=== PATIENT | female | born 1965 | race Caucasian/White ===

== ENCOUNTER → 2019-12-19 10:41 | Outpatient (CLI) | payer BC, SELFPAY ==
--- NOTE | ~2019-12-19 | MM_ITS ---
EXAMINATION: MM screening ivana RT w connie HISTORY: Screening right mammogram, history of left breast cancer TECHNIQUE: Craniocaudal and mediolateral oblique 3-D tomosynthesis images were obtained and synthetic 2-D images were generated. CAD analysis was submitted and interpreted. COMPARISON: 12/27/2018, 12/12/2018, 05/02/2017, 04/30/2016 BREAST PARENCHYMAL COMPOSITION: The breasts are heterogeneously dense, which may obscure small masses . FINDINGS: There is no evidence of suspicious mass, calcification, or architectural distortion to sugg est malignancy. There has been no suspicious interval change. IMPRESSION: 1. No mammographic evidence of malignancy. 2. Recommend routine screening mammography in one year. BI-RADS Category 1: Negative Reviewed, dictated and finalized at location A. US MANAGER
== END ==
PROVIDERS: Visit Provider Internal Medicine Hematology & Oncology
DX: Z12.31 Encounter for screening mammogram for malignant neoplasm of breast (principal); Z85.3 Personal history of malignant neoplasm of breast
CPT/HCPCS: 77063; 77067

== ENCOUNTER 2020-01-16 10:28 | Outpatient (CLI) | payer BC, SELFPAY ==
[2020-01-16 10:42] LABS: Basophils Percent Auto 0.3 % (0.2-1.2); Eosinophils Absolute Auto 0.1 K/mm3 (0-0.3); Eosinophils Percent Auto 0.8 % (0-4.4); Hematocrit 39.6 % (37.0-47.0); Hemoglobin 12.8 g/dL (12.0-15.0); Immature Granulocyte Absolute 0.02 K/mm3 (0.00-0.031); Immature Granulocyte Percent A 0.3 % (0-0.5); Lymphocytes Absolute Auto 1.42 K/mm3 (0.9-3.2); Lymphocytes Percent Auto 21.5 % (18.3-44.2); Mean Corpuscular HGB Conc 32.3 g/dl (32-36); Mean Corpuscular Hemoglobin 30.8 pg (26-34); Mean Corpuscular Volume 95.4 fl (80-100); Mean Platelet Volume 9.7 fl (7.4-10.4); Monocytes Absolute Auto 0.5 K/mm3 (0.1-0.6); Neutrophils Absolute Auto 4.6 K/mm3 (1.3-6.7); Neutrophils Percent Auto 69.1 % (45.5-73.1); Platelet Count Result 285 k/mm3 (150-375); Red Blood Count 4.15 M/mm3 (4.2-5.4); Red Cell Distribution Width 12.6 % (11.5-14.5); White Blood Count 6.6 K/mm3 (4.5-10.0)
[2020-01-16 10:46] LABS: Blood Urea Nitrogen 13 mg/dL (8-26); Carbon Dioxide 28 mmol/L (22-30); Chloride 103 mmol/L (98-109); Estimated Glomerular Filt Rate 58; Glucose 100 mg/dL (70-105); Sodium 140 mmol/L (138-146)
[2020-01-16 12:20] LABS: Alanine Aminotransferase 22 U/L (4-35); Albumin Level 3.9 g/dL (3.5-5.1); Alkaline Phosphatase 47 U/L (38-126); Aspartate Amino Transferase 25 U/L (14-36); Bilirubin,Total 0.3 mg/dL (0.2-1.3); Blood Urea Nitrogen 13 mg/dL (7-17); Calcium 9.1 mg/dL (8.4-10.2); Carbon Dioxide 28 mmol/L (22-30); Chloride 103 mmol/L (98-107); Estimated Glomerular Filt Rate > 60; Glucose 95 mg/dL (65-105); Potassium 4.2 mmol/L (3.4-5.0); Sodium 138 mmol/L (137-145)
== END 2020-01-16 10:29 | disposition home or self-care (01) ==
PROVIDERS: Visit Provider Internal Medicine Hematology & Oncology
DX: C50.212 Malignant neoplasm of upper-inner quadrant of left female breast (principal); Z17.0 Estrogen receptor positive status [ER+]; C50.312 Malignant neoplasm of lower-inner quadrant of left female breast
CPT/HCPCS: 36415; 80048; 80053; 85025

== ENCOUNTER → 2020-05-05 07:40 | Outpatient (CLI) | payer BC, SELFPAY ==
--- NOTE | ~2020-05-05 | MM_ITS ---
EXAMINATION: MM diagnostic ivana LT w connie HISTORY: History of left breast cancer TECHNIQUE: Craniocaudal, mediolateral, and mediolateral oblique 3-D tomosynthesis images of the left breast were performed and synthetic 2-D images were generated. CAD analysis was submitted and interpr eted. COMPARISON: 10/04/2019, 12/27/2018, 12/12/2018, 05/23/2017, 05/02/2017 FINDINGS: There are stable lumpectomy changes in the lower inner breast. No suspicious mass, calcific ation, or architectural distortion are identified. There has been no suspicious interval change. IMPRESSION: 1. Stable lumpectomy changes in the left breast without mammographic evidence of malignancy. 2. Recommend routine screening mammography. BI-RADS Category 2: Benign finding(s). Reviewed, dictated and finalized at location A. IMPRESSION: 1. Stable lumpectomy changes in the left breast without mammographic evidence o f malignancy. 2. Recommend routine screening mammography. BI-RADS Category 2: Benign finding(s).
== END ==
PROVIDERS: Visit Provider Internal Medicine Hematology & Oncology
DX: C50.212 Malignant neoplasm of upper-inner quadrant of left female breast (principal); Z17.0 Estrogen receptor positive status [ER+]
CPT/HCPCS: 77061; 77065; G0279

== ENCOUNTER 2020-05-05 08:35 | Outpatient (CLI) | payer BC, SELFPAY ==
[2020-05-05 09:10] LABS: Basophils Percent Auto 0.3 % (0.2-1.2); Eosinophils Absolute Auto 0.1 K/mm3 (0-0.3); Eosinophils Percent Auto 1.9 % (0-4.4); Hematocrit 40.7 % (37.0-47.0); Hemoglobin 13.3 g/dL (12.0-15.0); Immature Granulocyte Absolute 0.01 K/mm3 (0.00-0.031); Immature Granulocyte Percent A 0.2 % (0-0.5); Lymphocytes Absolute Auto 1.63 K/mm3 (0.9-3.2); Lymphocytes Percent Auto 28.1 % (18.3-44.2); Mean Corpuscular HGB Conc 32.7 g/dl (32-36); Mean Corpuscular Hemoglobin 30.7 pg (26-34); Mean Platelet Volume 9.9 fl (7.4-10.4); Monocytes Absolute Auto 0.5 K/mm3 (0.1-0.6); Monocytes Percent Auto 8.6 % (2.6-8.5); Neutrophils Absolute Auto 3.5 K/mm3 (1.3-6.7); Neutrophils Percent Auto 60.9 % (45.5-73.1); Platelet Count Result 270 k/mm3 (150-375); Red Blood Count 4.33 M/mm3 (4.2-5.4); Red Cell Distribution Width 12.4 % (11.5-14.5); White Blood Count 5.8 K/mm3 (4.5-10.0)
[2020-05-05 09:51] LABS: Alanine Aminotransferase 31 U/L (4-35); Alkaline Phosphatase 46 U/L (38-126); Aspartate Amino Transferase 27 U/L (14-36); Bilirubin,Total 0.4 mg/dL (0.2-1.3); Blood Urea Nitrogen 14 mg/dL (7-17); Calcium 9.3 mg/dL (8.4-10.2); Carbon Dioxide 30 mmol/L (22-30); Chloride 101 mmol/L (98-107); Estimated Glomerular Filt Rate > 60; Glucose 100 mg/dL (65-105); Potassium 4.5 mmol/L (3.4-5.0); Sodium 136 mmol/L (137-145)
[2020-05-07 21:19] LABS: CA 27.29 19 U/mL (<38)
== END 2020-05-05 08:36 | disposition home or self-care (01) ==
PROVIDERS: Visit Provider Internal Medicine Hematology & Oncology
DX: C50.212 Malignant neoplasm of upper-inner quadrant of left female breast (principal); Z17.0 Estrogen receptor positive status [ER+]
CPT/HCPCS: 36415; 80053; 85025; 86300

== ENCOUNTER 2020-08-05 10:45 | Outpatient (CLI) | payer BC, SELFPAY ==
[2020-08-05 11:20] LABS: Basophils Percent Auto 0.3 % (0.2-1.2); Eosinophils Absolute Auto 0.1 K/mm3 (0-0.3); Eosinophils Percent Auto 0.9 % (0-4.4); Hematocrit 43.2 % (37.0-47.0); Hemoglobin 13.6 g/dL (12.0-15.0); Immature Granulocyte Absolute 0.01 K/mm3 (0.00-0.031); Immature Granulocyte Percent A 0.1 % (0-0.5); Lymphocytes Absolute Auto 1.88 K/mm3 (0.9-3.2); Lymphocytes Percent Auto 25.4 % (18.3-44.2); Mean Corpuscular HGB Conc 31.5 g/dl (32-36); Mean Corpuscular Hemoglobin 30.2 pg (26-34); Mean Corpuscular Volume 95.8 fl (80-100); Mean Platelet Volume 9.8 fl (7.4-10.4); Monocytes Absolute Auto 0.8 K/mm3 (0.1-0.6); Monocytes Percent Auto 10.7 % (2.6-8.5); Neutrophils Absolute Auto 4.6 K/mm3 (1.3-6.7); Neutrophils Percent Auto 62.6 % (45.5-73.1); Platelet Count Result 313 k/mm3 (150-375); Red Blood Count 4.51 M/mm3 (4.2-5.4); Red Cell Distribution Width 12.4 % (11.5-14.5); White Blood Count 7.4 K/mm3 (4.5-10.0)
[2020-08-05 11:23] LABS: Blood Urea Nitrogen 18 mg/dL (8-26); Carbon Dioxide 29 mmol/L (22-30); Chloride 105 mmol/L (98-109); Estimated Glomerular Filt Rate > 60; Glucose 97 mg/dL (70-105); Sodium 142 mmol/L (138-146)
[2020-08-05 12:12] LABS: Alanine Aminotransferase 30 U/L (4-35); Albumin Level 4.3 g/dL (3.5-5.1); Alkaline Phosphatase 48 U/L (38-126); Anion Gap 9 mmol/L (8-16); Aspartate Amino Transferase 28 U/L (14-36); Bilirubin,Total 0.2 mg/dL (0.2-1.3); Blood Urea Nitrogen 19 mg/dL (7-17); Calcium 9.7 mg/dL (8.4-10.2); Carbon Dioxide 32 mmol/L (22-30); Chloride 103 mmol/L (98-107); Estimated Glomerular Filt Rate > 60; Glucose 96 mg/dL (65-105); Potassium 4.4 mmol/L (3.4-5.0); Sodium 144 mmol/L (137-145)
== END 2020-08-05 10:46 | disposition home or self-care (01) ==
PROVIDERS: Visit Provider Internal Medicine Hematology & Oncology
DX: C50.212 Malignant neoplasm of upper-inner quadrant of left female breast (principal); Z17.0 Estrogen receptor positive status [ER+]
CPT/HCPCS: 36415; 80048; 80053; 83001; 85025

== ENCOUNTER 2020-10-27 10:51 | Outpatient (CLI) | payer BC, SELFPAY ==
[2020-10-27 11:24] LABS: Basophils Percent Auto 0.3 % (0.2-1.2); Eosinophils Absolute Auto 0.1 K/mm3 (0-0.3); Eosinophils Percent Auto 0.9 % (0-4.4); Hematocrit 39.4 % (37.0-47.0); Hemoglobin 12.9 g/dL (12.0-15.0); Immature Granulocyte Absolute 0.01 K/mm3 (0.00-0.031); Immature Granulocyte Percent A 0.1 % (0-0.5); Lymphocytes Absolute Auto 1.79 K/mm3 (0.9-3.2); Lymphocytes Percent Auto 24.1 % (18.3-44.2); Mean Corpuscular HGB Conc 32.7 g/dl (32-36); Mean Corpuscular Hemoglobin 30.5 pg (26-34); Mean Corpuscular Volume 93.1 fl (80-100); Mean Platelet Volume 9.5 fl (7.4-10.4); Monocytes Absolute Auto 0.6 K/mm3 (0.1-0.6); Monocytes Percent Auto 8.5 % (2.6-8.5); Neutrophils Absolute Auto 4.9 K/mm3 (1.3-6.7); Neutrophils Percent Auto 66.1 % (45.5-73.1); Platelet Count Result 289 k/mm3 (150-375); Red Blood Count 4.23 M/mm3 (4.2-5.4); Red Cell Distribution Width 12.7 % (11.5-14.5); White Blood Count 7.4 K/mm3 (4.5-10.0)
[2020-10-27 12:57] LABS: Alanine Aminotransferase 27 U/L (4-35); Albumin Level 3.8 g/dL (3.5-5.1); Alkaline Phosphatase 48 U/L (38-126); Anion Gap 5 mmol/L (8-16); Aspartate Amino Transferase 29 U/L (14-36); Bilirubin,Total 0.3 mg/dL (0.2-1.3); Blood Urea Nitrogen 17 mg/dL (7-17); Calcium 9.2 mg/dL (8.4-10.2); Carbon Dioxide 31 mmol/L (22-30); Chloride 103 mmol/L (98-107); Estimated Glomerular Filt Rate > 60; Glucose 96 mg/dL (65-105); Potassium 4.2 mmol/L (3.4-5.0); Sodium 139 mmol/L (137-145)
[2020-11-01 06:02] LABS: CA 15-3 10 U/mL (<32); FSH 19.3 mIU/mL (***)
[2020-11-02 19:11] LABS: Estradiol, Ultrasensitive 648 pg/mL
== END 2020-10-27 10:52 | disposition home or self-care (01) ==
PROVIDERS: Visit Provider Internal Medicine Hematology & Oncology
DX: C50.212 Malignant neoplasm of upper-inner quadrant of left female breast (principal); Z17.0 Estrogen receptor positive status [ER+]
CPT/HCPCS: 36415; 80053; 82670; 83001; 85025; 86300

== ENCOUNTER 2021-02-13 12:48 | Outpatient (CLI) | payer BC, SELFPAY ==
[2021-02-13 13:06] LABS: Basophils Percent Auto 0.4 % (0.2-1.2); Eosinophils Absolute Auto 0.1 K/mm3 (0-0.3); Eosinophils Percent Auto 1.6 % (0-4.4); Hematocrit 40.4 % (37.0-47.0); Hemoglobin 13.1 g/dL (12.0-15.0); Immature Granulocyte Absolute 0.03 K/mm3 (0.00-0.031); Immature Granulocyte Percent A 0.4 % (0-0.5); Lymphocytes Absolute Auto 2.13 K/mm3 (0.9-3.2); Lymphocytes Percent Auto 28.8 % (18.3-44.2); Mean Corpuscular HGB Conc 32.4 g/dl (32-36); Mean Corpuscular Hemoglobin 30.5 pg (26-34); Mean Platelet Volume 9.8 fl (7.4-10.4); Monocytes Absolute Auto 0.7 K/mm3 (0.1-0.6); Monocytes Percent Auto 9.6 % (2.6-8.5); Neutrophils Absolute Auto 4.4 K/mm3 (1.3-6.7); Neutrophils Percent Auto 59.2 % (45.5-73.1); Platelet Count Result 276 k/mm3 (150-375); Red Cell Distribution Width 12.5 % (11.5-14.5); White Blood Count 7.4 K/mm3 (4.5-10.0)
[2021-02-13 13:42] LABS: Alanine Aminotransferase 24 U/L (4-35); Alkaline Phosphatase 45 U/L (38-126); Anion Gap 5 mmol/L (8-16); Aspartate Amino Transferase 26 U/L (14-36); Bilirubin,Total 0.1 mg/dL (0.2-1.3); Blood Urea Nitrogen 17 mg/dL (7-17); Calcium 9.3 mg/dL (8.4-10.2); Carbon Dioxide 29 mmol/L (22-30); Chloride 105 mmol/L (98-107); Estimated Glomerular Filt Rate > 60; Glucose 110 mg/dL (65-105); Potassium 4.3 mmol/L (3.4-5.0); Sodium 139 mmol/L (137-145)
[2021-02-18 05:58] LABS: CA 27.29 19 U/mL (<38)
== END 2021-02-13 12:49 | disposition home or self-care (01) ==
LOC: ANHLAB 12:49
PROVIDERS: Visit Provider Internal Medicine Hematology & Oncology
DX: C50.212 Malignant neoplasm of upper-inner quadrant of left female breast (principal); Z17.0 Estrogen receptor positive status [ER+]
CPT/HCPCS: 36415; 80053; 85025; 86300

== ENCOUNTER → 2021-02-13 13:11 | Outpatient (CLI) | payer BC, SELFPAY ==
--- NOTE | ~2021-02-13 | MM_ITS ---
EXAMINATION: MM screening ivana BI w connie HISTORY: Screening TECHNIQUE: Craniocaudal and mediolateral oblique 3-D tomosynthesis images were obtained and synthetic 2-D images were generated. CAD analysis was submitted and interpreted. COMPARISON: Comparison to multiple prior studies sequentially, with oldest reviewed study dated 12/12. BREAST PARENCHYMAL COMPOSITION: The breasts are heterogenously dense, which may obscure small masses. FINDINGS: There is no evidence of suspicious mass, calcification, or architectural distortion to sugg est malignancy in either breast. There has been no suspicious interval change. IMPRESSION: 1. No mammographic evidence of malignancy. 2. Recommend routine screening mammography in one year. BI-RADS Category 1: Negative Reviewed, dictated and finalized at location A.
== END ==
PROVIDERS: Visit Provider Internal Medicine Hematology & Oncology
DX: Z12.31 Encounter for screening mammogram for malignant neoplasm of breast (principal)
CPT/HCPCS: 77063; 77067

== ENCOUNTER 2022-03-16 12:40 | Outpatient (CLI) | payer OTHER, SELFPAY ==
--- NOTE | 2022-03-16 12:52 | ECG_ITS ---
Measurements Intervals [place] Rate: 70 P: 55 WI: 165 QRS: 49 QRSD: 74 T: 27 QT: 359 QTc: 389 Interpretive Statements SINUS RHYTHM WITH SINUS ARRHYTHMIA BORDERLINE ST-T WAVE ABNORMALITY- INFERIOR LEADS BASELINE ARTIFACT- I, II, AVR, AVL, AVF, V1 BORDERLINE ECG Electronically Signed On 03-16-2022 13:14:17 CDT by Pastor Denny D.O.
[2022-03-16 13:11] LABS: Hematocrit 42.2 % (37.0-47.0); Hemoglobin 13.4 g/dL (12.0-15.0)
== END 2022-03-16 12:41 | disposition home or self-care (01) ==
PROVIDERS: Anesthesiology; PCP Family Medicine; Visit Provider Surgery Plastic and Reconstructive Surgery
DX: I10 Essential (primary) hypertension (principal); Z01.818 Encounter for other preprocedural examination; R94.31 Abnormal electrocardiogram [ECG] [EKG]
CPT/HCPCS: 36415; 85014; 85018; 93005

== ENCOUNTER 2022-03-19 15:26 | Observation (INO) | payer OTHER, SELFPAY ==
[2022-03-15 15:18] VITALS: BMI 24.0
--- NOTE | 2022-03-15 15:25 | PC.NURSE ---
Report to the Outpatient Waiting Room, entrance under the green pavilion located off [facility], at time _0600_ on date _[id number]_. OR Time: _0730_. - You and your visitor will be asked a series of questions to screen for COVID 19 for your protection. - Only one visitor is allowed at this time. - The patient visitor is requested to leave or wait in car when not with patient. - A mask is required within the hospital. Patients may have clear liquids (water, carbonated beverages, clear teas, apple juice) until 3 hours prior to surgery with a maximum of 20 ounces. - No food from midnight until time of surgery - Infants may have breast milk until 4 hours before surgery, infant formula 6 hours prior to surgery. - Children will be allowed to drink immediately following surgery. If applicable, please bring a bottle or sippy cup to assist with drinking. Juice, water, soda, and popsicles are readily available. For infants on formula, please bring formula the day of surgery. Pacifiers are allowed. Take the following medications with a SIP of water the morning of surgery: ___No medications day of surgery. Medications to discontinue per physician __Stop all supplements tuesday. Date to take last [id number] Please no make-up, nail lithuanian, hairspray, perfume, deodorant, or body powder the day of surgery. No jewelry (including any body piercings) or valuables the day of surgery, leave them at home. Please take a shower or bath the night before, or the morning of, surgery with an antibacterial soap. Wear comfortable, loose fitting clothing. Children are encouraged to wear pajamas. - Jewelry must be removed prior to entering the operating room. Rings and piercings that are not removed may be cut off. - The hospital will not accept responsibility for valuables. - Please leave all valuables, including medications, at home the day of surgery. If you are going home after surgery, a licensed driver material handler must drive you home. - NO public transportation without another adult. - We recommend that an adult stay with you for 24 hours following discharge. - We also recommend that you do not drive, make important decision, drink alcoholic beverages, or take any drugs that were not prescribed by your health care provider for at least 24 hours after your discharge time. For Pediatric surgeries, we recommend two adults accompany the child home (only one inside the building at this time). Follow any additional instructions given to you from your surgeon. If you or anyone in your household have experienced Covid symptoms in the past week, please notify your surgeon or the nurse liaison at the phone number below for possible testing. Telephone instructions given to __Patient and asked if any additional questions and then verbalized understanding. Patient advised to call surgeon office or pre surgery nurse liaison [phone] if any additional questions.
--- NOTE | 2022-03-17 12:56 | P.PNAN_ITS ---
Anes - Initial Pre Proc Eval Procedure: Operation Date: 03/18/22 07:30 Proposed Procedures p Face and Neck Lift, Temporal Brow Lift - Ashu Cohen MD s Upper Eyelid Blepharoplasty - Ashu Cohen MD s Bilateral Otoplasty - Ashu Cohen MD Date/Time: 03/17/22 12:56 Surgeon: Ashu Cohen MD Pre Op Diagnosis: Skin Laxity Patient Data Age: 56 Gender: F Height: 1.63 m Weight: 63.6 kg Allergies Allergy/AdvReac Type Severity Reaction Status Date / Time No Known Drug Allergies Allergy Unknown Unknown Verified 03/15/22 15:14 Home Medications Medication Instructions Recorded Confirmed Type tamoxifen 20 mg tablet 20 mg PO DAILY 07/31/20 03/15/22 History lisinopril 10 mg tablet 10 mg PO DAILY #90 tablet 10/14/21 03/15/22 Rx pravastatin 40 mg tablet 40 mg PO QHS #90 tablet 10/14/21 03/15/22 Rx docusate sodium 100 mg capsule 100 mg PO DAILY #14 cap 03/01/22 Rx ondansetron 4 mg disintegrating 4 mg PO Q8H #28 tablet 03/01/22 Rx tablet tramadol 50 mg tablet 50 mg PO Q6H PRN #30 tablet 03/03/22 Rx coenzyme Q10 [CoQ-10] 30 mg PO DAILY 03/15/22 03/15/22 History magnesium 250 mg PO DAILY 03/15/22 03/15/22 History febeppj-nkky-hgmta-oreg-capryl 2 cap PO DAILY 03/15/22 03/15/22 History Patient hx anesthesia problems: none Family hx anesthesia problems: none Results Review: All pre-operative results and documents have been reviewed as p art of the pre-operative evaluation. [facility] Past Medical History Medical History Anxiety Breast cancer left Dyslipidemia Essential (primary) hypertension History of cervical cancer Prediabetes Surgical History Surgical History History of hysterectomy 2009 History of lumpectomy of left breast 2019 History of strabismus surgery 2009 - b/l Family History Family History Other Family history of chronic obstructive pulmonary disease Family history of coronary artery disease Social History Social History Smoking status: Never smoker Alcohol intake: current Substance use: never Substance use type: does not use Living arrangements: with family Gender identity (if verbalized by the patient): Female Spiritual care concerns: No Anes - Eval Final PreProcedure Day of Procedure 03/17/22 12:56 Patient weight: normal Heart: regular rate and rhythm Lungs: clear to auscultation Airway: Mallampati scale class II Neurological: alert and oriented Last oral intake: >/= 8 hours ASA classification: III Emergent: no Anesthetic plan: proceed Anesthesia type and monitoring: general ETT and standard monitoring Results Review: All pre-operative results and documents have been reviewed as part of the pre-operative evaluation. Informed Consent: The patient's anesthetic plan and its attendant risks and benefits were discussed with the patient/family/POA. Questions were solicited and answers provided to the satisfaction of the patient/family/POA.
[2022-03-18] VITALS (12 sets, daily range): BP systolic 84–146; BP diastolic 50–69; PULSE 63–98; RESP 14–20; TEMP 35.9–37.4; O2SAT 95–100; BMI 23.9
--- NOTE | 2022-03-18 07:00 | WPDHPUPDATE1 ---
History and Physical Update Update Date/Time: 03/18/22 07:00 History and Physical has been reviewed, including an updated exam of the patient. There are NO changes in the patient's condition. Risks, benefits, and alternatives have been discussed and questions answered. Patient agrees to proceed with procedure.
[2022-03-18] MEDS: LACTATED RINGERS 1,000 ML 30 ML IV CONT ×2 (07:15→14:08)
[2022-03-18] MEDS: ceFAZolin 2 GM/D5W 50 ML 2 GM/50 ML BAG IVPB (07:29)
[2022-03-18] MEDS: BUPIVACAINE HCL 0.25% PF 30 ML VIAL INFILTRATE (07:29)
[2022-03-18] MEDS: TRANEXAMIC ACID 1,000MG/ISO100 1,000 MG/100 ML BAG 200 MG IVPB (07:40)
[2022-03-18 07:48] LABS: Urine Cotinine NEGATIVE
[2022-03-18] MEDS: BACITRACIN OINTMENT 15 GM TUBE 1 APPLIC TOPICAL (08:45)
[2022-03-18] MEDS: LIDO 1%/EPINEPHRINE/PF 1:200,000 30 ML VIAL 12 ML XX (11:56)
--- NOTE | 2022-03-18 13:56 | W.PM.PROC2 ---
Procedure Note - Detailed Date of Procedure 03/18/22 Pre-op Diagnosis Skin Laxity Post-op Diagnosis Same Procedure Performed 1. Bilateral temporal brow lift 2. Bilateral upper eyelid blepharoplasty 3. Facial rhytidectomy and cervicoplasty 4. Bilateral otoplasty Surgeon Ashu Cohen MD Anesthesia General Description of Procedure Preoperatively risks, benefits, alternatives were discussed in extensive detail. Want her to be very realistic about the risks involved we pointed out her asymmetries. The limitations of the procedure. All questions were answered to her satisfaction. Consent obtained. She was marked in the preoperative holding area with her verification. Her upper lid blepharoplasty was marked simulating the brow lift using a pinch technique to verified no lagophthalmos. She was taken to the operating room placed supine on the operating room table. Anesthesia provided by anesthesiology and prepped and draped in a standard sterile fashion. Surgical time-out was taken. 1% lidocaine and 0.25% Marcaine with epinephrine was used anesthetize with the brow lift as well as upper eyelid blepharoplasty. Fifteen blade used to make the hairline incision bevelling to protect hair follicles. Dissection was continued a subcutaneous plane to those level of the orbital rim and laterally. This was an asymmetric lift as she had slight degree of asymmetry before the procedure. The brow was tacked into place and excess tissue removed. I closed with 5 0 nylon. I incised and removed a skin flap down bilateral upper eyelid blepharoplasties. Open the septum and removed just what was clearly excess adipose tissue in the medial and middle fat compartments. Verified strict hemostasis. I closed using running subcuticular 5-0 Prolene which was ultimately held with Steri-Strips on each side. Temporary tarsorrhaphy was placed with 4-0 silk. Stab incisions were made. I tumesced with a tumescent solution. Once adequate time for hemostasis 15 blade used to make a submental incision. Dissection was continued until the platysma muscle was identified. Elevated platysma medial and laterally. There was a minimal amount of adiposity removed in this location. I then plicated platysma using 2-0 Vicryl in multiple passes. I also released at the level of the hyoid bone inferiorly. Fifteen blade used to make a bilateral pretragal facelift incision. Dissection was continued just superficial to the SMAS. Preoperatively she had decided not to do fat grafting in february do this at a 2nd stage at her expense if she desires. As such we did not remove any SMAS however to maximize this volume. Inferior posterior to the mandibular angle I incised the platysma muscle. Elevated for short distance and released inferiorly. Care was taken to protect any neurovascular structures. There is no evidence of neurovascular injury. This was sutured to the mastoid bilateral with 2-0 Vicryl. Smashed plication was completed and multiple passes using 2-0 Vicryl as well. Bilateral 10 Placido drains were placed. These were postauricular. Sutured in place with 4-0 Vicryl. Skin was trimmed as necessary and a stapled in the hairline and 5 0 nylon preauricular. At the tragus she already had the appearance of a pixie ear preoperatively and this was secured into place with 4-0 Monocryl. Then proceeded otoplasty. Elevated postauricular along the cartilage just what was necessary in order to provide exposure. Using a 25 gauge needle anterior to posterior was able to identify the planned sutures site. This was sutured in multiple planes to recreate the helical fold as well as serafin-scapho angle. This was with 4-0 clear nylon. I was very careful to make sure there was no bite through the skin. This was until she had contour bilateral. I then closed postauricular with 5 0 chromic. Temporary tarsorrhaphy suture was removed. Dressings were placed. She was wok
[2022-03-18] MEDS: LACTATED RINGERS 1,000 ML 125 ML (16:20)
[2022-03-18] MEDS: ONDANSETRON INJ 4 MG/2 ML VIAL IV PUSH (16:39)
[2022-03-18] MEDS: HYDROmorphone HCL INJ (*CRX) 1 MG/ML SYR 0.5 MG IV PUSH (16:40)
[2022-03-18] MEDS: carisoprodoL (*CRX) 350 MG TABLET PO ×2 (18:06→23:46)
--- NOTE | 2022-03-18 18:32 | ADMGEN ---
Addendum entered by Deneen Puente RN 03/18/22 18:33: Admission time [id number] Original Note: This patient, Megha Carvajal, was admitted to OB 2nd Floor Room 279-00. Patient/family oriented to hospital policies and general routines including ID bracelet, visiting hours, pain management, procedures, bathroom and other care routines, personal items, room service/diet, and visiting hours.
[2022-03-18] MEDS: DOCUSATE SODIUM 100 MG CAPSULE PO (20:47)
[2022-03-18] MEDS: PRAVASTATIN SODIUM 20 MG TABLET 40 MG PO (20:47)
--- NOTE | 2022-03-18 21:04 | PC.NURSE ---
HOB elev. so that pt could eat crackers and drink some water, c/o feeling woosy , appeared to pass out for few seconds, did not respond to her name, HOB lowered some and soon responding to nurse.
[2022-03-19 04:15] VITALS: BP 133/61; PULSE 94; RESP 16; TEMP 37.3; O2SAT 95
[2022-03-19] MEDS: carisoprodoL (*CRX) 350 MG TABLET PO ×3 (05:48→17:46)
[2022-03-19 07:30] VITALS: BP 137/64; PULSE 86; RESP 18; TEMP 37.7; O2SAT 96
--- NOTE | 2022-03-19 07:32 | WPDPN ---
Progress Note: A&P Assessment and Plan (1) Encounter for cosmetic procedure: Code(s): Z41.1 - Encounter for cosmetic surgery Status: Acute Assessment and Plan: Overall doing well after: Temporal brow lift Bilateral upper lid blepharoplasty Facial rhytidectomy / cervicoplasty Bilateral otoplasty When discussing this with her she complained that she was unable to see however on physical examination she describes good vision with slight blurry in her left eye although minimal. Otherwise normal gross vision full I range of motion with no lagophthalmos and nothing of concern noted. Surgically she appears to be doing well; however, I do have concerns over her social issues and discharge given lack of snf which appears that it was not planned appropriately for this procedure. Will monitor today as she will need significant improvement to be home alone. Will follow closely. (2) History of strabismus surgery: Code(s): Z98.890 - Other specified postprocedural states Status: Acute Subjective Date/time seen: 03/19/22 07:32 Overnight she states she has done ?okay? she is somewhat tearful this morning. She says she can not see. When I asked her why she is tearful is it fear of the procedure she stated no, she is all alone in life and has no help. She states her pain is improving. No fevers or chills. No nausea vomiting. No shortness of breath. No chest pain. No calf tenderness. Review of Systems Review of Systems: All systems reviewed & are unremarkable except as noted in HPI and below Exam Narrative: Alert and oriented. CN 2-12 appear grossly intact. She is able to easily close her eyes. She is able to open her eyes however has edema periorbital as anticipated. When opening her eyes she states her right eye has normal gross vision, her left eye is just minimally blurry. No double vision. PERRLA EOMI. Given her statement of ?I can not see ?I did a thorough eye examination and no atypical findings. She also states that she is able to see. Incisions are healing well. There is no signs of infection. No hematoma. No seroma. Good contour. No calf tenderness. Negative Homans. Objective Data Vital Signs Vital Signs: Vital Signs - 24 hr 03/18/22 07:46 03/18/22 14:08 03/18/22 14:20 Temperature 35.9 C L 36.2 C L Pulse Rate 63 98 90 Respiratory Rate 14 19 20 Blood Pressure 146/65 H 91/55 L 84/50 L Pulse Oximetry 100 98 97 03/18/22 14:35 03/18/22 14:50 03/18/22 15:05 Temperature Pulse Rate 86 93 81 Respiratory Rate 18 18 16 Blood Pressure 105/56 L 112/69 108/58 L Pulse Oximetry 98 98 96 03/18/22 15:20 03/18/22 15:35 03/18/22 15:48 Temperature 36.7 C 36.0 C L Pulse Rate 86 90 76 Respiratory Rate 18 18 16 Blood Pressure 104/60 107/65 108/57 L Pulse Oximetry 96 96 99 03/18/22 20:11 03/18/22 21:11 03/18/22 23:57 Temperature 36.6 C 37.4 C Pulse Rate 83 86 94 Respiratory Rate 18 16 16 Blood Pressure 101/59 L 138/67 132/63 Pulse Oximetry 99 95 03/19/22 04:15 Temperature 37.3 C Pulse Rate 94 Respiratory Rate 16 Blood Pressure 133/61 Pulse Oximetry 95 Intake/Output Intake/Output: Intake & Output 03/16/22 03/17/22 03/18/22 03/19/22 23:59 23:59 23:59 23:59 Intake Total 1800 100 Output Total 676 350 Balance 1124 -250 Meds/Results Medications: Active Medications Generic Name Dose Route Start Last Admin Trade Name Freq PRN Reason Stop Dose Admin Carisoprodol 350 mg 03/18/22 18:00 03/19/22 05:48 Carisoprodol (*Crx) 350 Mg Tablet PO 350 mg Q6HR BRIGID Administration Diazepam 5 mg 03/18/22 14:09 Diazepam (*Crx) 5 Mg Tablet PO TID PRN Anxiety Docusate Sodium 100 mg 03/18/22 21:00 03/18/22 20:47 Docusate Sodium 100 Mg Capsule PO 100 mg Q12HR BRIGID Administration Lisinopril 10 mg 03/19/22 09:00 Lisinopril 10 Mg Tablet PO DAILY BRIGID Magnesium Gluconate 13.5 mg 03/19/22 09:00 Evelyn
[2022-03-19] MEDS: MAGNESIUM 13.5 MG TABLET (250 MG MAG GLUCONATE) PO (08:36)
[2022-03-19] MEDS: lisinopriL 10 MG TABLET PO (08:39)
[2022-03-19] MEDS: DOCUSATE SODIUM 100 MG CAPSULE PO ×2 (08:40→20:50)
--- NOTE | 2022-03-19 09:00 | PC.NURSE ---
I sat in the room and spoke with the pt regarding her pain, recovery today, and her support system as far as taking care of herself and her two dogs once she goes home. Pt was teary about her pain and her transition to home. Pt stated, I don't know why I did this, am I going to ? I assured the patient that she is medically stable from this surgery and I will do everything possible to keep her pain under control today. I encouraged the pt to call her support person (sister) and ensure that her dogs are taken care of today and that I will take care of her today in the hospital as far as recovery.
[2022-03-19] MEDS: TAMOXIFEN CITRATE (*CHEMO) 10 MG TABLET 20 MG PO (11:36)
[2022-03-19] MEDS: traMADol HCL (*CRX) 50 MG TABLET PO ×3 (11:38→20:50)
[2022-03-19 18:40] VITALS: BP 133/78; PULSE 84; RESP 18; TEMP 37.2
[2022-03-19] MEDS: PRAVASTATIN SODIUM 20 MG TABLET 40 MG PO (20:50)
[2022-03-20] MEDS: carisoprodoL (*CRX) 350 MG TABLET PO ×2 (00:08→05:47)
[2022-03-20] MEDS: ONDANSETRON INJ 4 MG/2 ML VIAL IV PUSH ×2 (00:12→09:48)
[2022-03-20] MEDS: traMADol HCL (*CRX) 50 MG TABLET PO (00:20)
--- NOTE | 2022-03-20 08:05 | WPDPN ---
Progress Note: A&P Assessment and Plan (1) Encounter for cosmetic procedure: Code(s): Z41.1 - Encounter for cosmetic surgery Status: Acute Assessment and Plan: Doing well / much improved after: 1. Bilateral temporal brow lift 2. Bilateral upper eyelid blepharoplasty 3. Facial rhytidectomy and cervicoplasty 4. Bilateral otoplasty Mild left eyelid ptosis, will monitor. Will discharge home. I will see her back. Today we had a lengthy discussion about the care. Activity limitations. The importance of ambulation. What to monitor for. We discussed what medical emergencies are and when to proceed to the ER/dial 911. She understands she can call with any questions or concerns at any time. I will see her back. (2) History of strabismus surgery: Code(s): Z98.890 - Other specified postprocedural states Status: Acute Subjective Date/time seen: 03/20/22 08:05 Today she says she is doing much better. No fevers or chills. No nausea vomiting. No shortness of breath. No chest pain. No visual concerns. Review of Systems Review of Systems: All systems reviewed & are unremarkable except as noted in HPI and below Exam Narrative: Alert and oriented. CN 2-12 appear grossly intact. No lagophthalmos. Vision improved. She has a mild left ptosis (1-2mm compared to right). No double vision. PERRLA EOMI. Incisions are healing well. There is no signs of infection. No hematoma. No seroma. Good contour. No calf tenderness. Negative Homans. Objective Data Vital Signs Vital Signs: Vital Signs - 24 hr 03/19/22 18:40 Temperature 37.2 C Pulse Rate 84 Respiratory Rate 18 Blood Pressure 133/78 Intake/Output Intake/Output: Intake & Output 03/17/22 03/18/22 03/19/22 03/20/22 23:59 23:59 23:59 23:59 Intake Total 1922 892 9277 Output Total 67 679 14 Balance 1124 -579 1226 Meds/Results Medications: Active Medications Generic Name Dose Route Start Last Admin Trade Name Freq PRN Reason Stop Dose Admin Carisoprodol 350 mg 03/18/22 18:00 03/20/22 05:47 Carisoprodol (*Crx) 350 Mg Tablet PO 350 mg Q6HR BRIGID Administration Diazepam 5 mg 03/18/22 14:09 Diazepam (*Crx) 5 Mg Tablet PO TID PRN Anxiety Docusate Sodium 100 mg 03/18/22 21:00 03/19/22 20:50 Docusate Sodium 100 Mg Capsule PO 100 mg Q12HR BRIGID Administration Lisinopril 10 mg 03/19/22 09:00 03/19/22 08:39 Lisinopril 10 Mg Tablet PO 10 mg DAILY BRIGID Administration Magnesium Gluconate 13.5 mg 03/19/22 09:00 03/19/22 08:36 Magnesium 13.5 Mg Tablet (250 Mg Mag Gluconate) PO 04/18/22 08:59 13.5 mg DAILY BRIGID Administration Morphine Sulfate 2 mg 03/18/22 14:09 Morphine Sulfate (*Crx) 2 Mg/Ml Inj IV PUSH Q2H PRN Pain Ondansetron HCl 4 mg 03/18/22 14:09 03/20/22 00:12 Ondansetron Inj 4 Mg/2 Ml Vial IV PUSH 4 mg Q6H PRN Administration Nausea Pravastatin Sodium 40 mg 03/18/22 21:00 03/19/22 20:50 Pravastatin Sodium 20 Mg Tablet PO 40 mg HS BRIGID Administration Tamoxifen Citrate 20 mg 03/19/22 09:00 03/19/22 11:36 Tamoxifen Citrate (*Chemo) 10 Mg Tablet PO 20 mg QAM BRIGID Administration Tramadol HCl 50 mg 03/18/22 15:42 03/20/22 00:20 Tramadol Hcl (*Crx) 50 Mg Tablet PO 50 mg Q4H PRN Administration Pain Rated 4-6
--- NOTE | 2022-03-20 08:09 | PM.DS ---
DS: Admitting Diagnosis Discharge Date 03/20/2022 Admitting Diagnosis Encounter for cosmetic surgery DS: Discharge Diagnosis Discharge Diagnosis (1) Encounter for cosmetic procedure: Code(s): Z41.1 - Encounter for cosmetic surgery Status: Acute (2) History of strabismus surgery: Code(s): Z98.890 - Other specified postprocedural states Status: Acute DS: Summary Hospital Course Hospital Course: She underwent: 1. Bilateral temporal brow lift 2. Bilateral upper eyelid blepharoplasty 3. Facial rhytidectomy and cervicoplasty 4. Bilateral otoplasty She was kept 1 extra postoperative day secondary to social concerns, ability to care for self home. Will discharge home. I will see her back. Time Spent with Patient Time attestation: Total time spent providing and/or coordinating discharge services: Exam Narrative: Alert and oriented. CN 2-12 appear grossly intact. No lagophthalmos. Vision improved. She has a mild left ptosis (1-2mm compared to right). No double vision. PERRLA EOMI. Incisions are healing well. There is no signs of infection. No hematoma. No seroma. Good contour. No calf tenderness. Negative Homans. Discharge Plan Discharge Attending physician on discharge: Ashu Cohen Discharging Clinician: Ashu Cohen Anticipated Discharge Date/Time: 03/20/22 08:04 Patient Disposition: Home, Self-Care Activity: other - see discharge instructions Diet: regular Wound Care Instructions: other - see discharge instructions Discharge Instructions: POST OPERATIVE DISCHARGE INSTRUCTIONS ASHU COHEN M.D. [facility] [address] [place] [address] [address] for 24 hours after anesthesia and while you are taking pain medication. Take all prescribed medication as directed Diet as tolerated. No lifting or activity that raises blood pressure for 48 hours. Regular walking / ambulation. May shower.. Once you shower do not take pain medication before showering as the combination of medication and heat may cause you to feel dizzy or pass out. No pools or tubs for 2 weeks. Call with any questions or concerns. Dressing Care: Continue face lift wrap / ear protection 23 hours per day. If you have any questions or concerns, please call the office . If it is after hours you will be directed to the salon customer experience specialist exchange. Shortness of breath, chest pain, or other medical emergency dial 911 / proceed to the Emergency Room. Patient Instructions: Antibiotic Form Stand Alone Forms: General Discharge Instructions Follow-up/Referrals: Ashu Cohen MD [Physician] - 1 Week Discharge Medications: Continued lisinopril 10 mg tablet 10 mg PO DAILY Qty: 90 RF: 3 pravastatin 40 mg tablet 40 mg PO QHS Qty: 90 RF: 3 tamoxifen 20 mg tablet 20 mg PO DAILY RF: 0 docusate sodium [Colace] 100 mg capsule 100 mg PO DAILY Qty: 14 RF: 0 ondansetron 4 mg tablet,disintegrating 4 mg PO Q8H Qty: 28 RF: 0 magnesium 250 mg Tablet 250 mg PO DAILY RF: 0 coenzyme Q10 [CoQ-10] 30 mg Capsule 30 mg PO DAILY RF: 0 ermkpaw-nnil-qpqhs-oreg-capryl 100 mg-150 mg- 50 mg-150 mg Capsule 2 cap PO DAILY RF: 0 tramadol [Ultram] 50 mg tablet 50 mg PO Q6H PRN (Reason: pain) Qty: 30 RF: 0 Date of admission: 03/19/22 15:26 Primary Care Provider: Breanna Ordonez Admitting Provider: Ashu Cohen Attending physician on admission: Ashu Cohen Condition: Stable
[2022-03-20] MEDS: DOCUSATE SODIUM 100 MG CAPSULE PO (09:40)
[2022-03-20] MEDS: lisinopriL 10 MG TABLET PO (09:41)
[2022-03-20] MEDS: MAGNESIUM 13.5 MG TABLET (250 MG MAG GLUCONATE) PO (09:41)
[2022-03-20] MEDS: TAMOXIFEN CITRATE (*CHEMO) 10 MG TABLET 20 MG PO (09:41)
[2022-03-20 09:48] VITALS: BP 139/73; PULSE 75; RESP 16; TEMP 36.5; O2SAT 97
--- NOTE | 2022-03-20 14:36 | PC.NURSE ---
1200 D/C instructions gone over. Instructed pt on how to empty her MARIA ELENA drains. She V/U'd
--- NOTE | 2022-03-20 14:38 | PC.NURSE ---
[address] Cohen stated when her MARIA ELENA drains could come out? She Stated yes at my 1 week Doctors appointment with him.
== END 2022-03-20 12:26 | disposition home or self-care (01) ==
LOC: ANHSURGERY 15:37 → ANHOB2 15:37
PROVIDERS: Admitting Provider Surgery Plastic and Reconstructive Surgery; PCP Family Medicine; Visit Provider Surgery Plastic and Reconstructive Surgery
PROC: (CPT 15824; principal; 2022-03-18 07:30)
PROC: (CPT 15822; 2022-03-18 07:30)
PROC: (CPT 69300; 2022-03-18 07:30)
DX: Z41.1 Encounter for cosmetic surgery (principal); L57.4 Cutis laxa senilis; Q17.5 Prominent ear; R73.03 Prediabetes; I10 Essential (primary) hypertension; E78.5 Hyperlipidemia, unspecified; F41.9 Anxiety disorder, unspecified; Z85.41 Personal history of malignant neoplasm of cervix uteri; Z85.3 Personal history of malignant neoplasm of breast; Z79.810 Long term (current) use of selective estrogen receptor modulators (SERMs); Z79.899 Other long term (current) drug therapy
CPT/HCPCS: 15822; 15825; 69300; 15824; 80307; 99199; A9270; G0378; J0171; J0690; J1100; J1170; J2250; J2405; J2704; J2710; J3010; J7030; J7120

== ENCOUNTER 2022-05-20 09:55 | Outpatient (CLI) | payer BC, SELFPAY ==
[2022-05-20 10:23] LABS: Basophils Percent Auto 0.3 % (0.2-1.2); Eosinophils Absolute Auto 0.1 K/mm3 (0-0.3); Eosinophils Percent Auto 1.3 % (0-4.4); Hematocrit 41.1 % (37.0-47.0); Hemoglobin 13.2 g/dL (12.0-15.0); Immature Granulocyte Absolute 0.02 K/mm3 (0.00-0.031); Immature Granulocyte Percent A 0.3 % (0-0.5); Lymphocytes Absolute Auto 1.88 K/mm3 (0.9-3.2); Lymphocytes Percent Auto 26.4 % (18.3-44.2); Mean Corpuscular HGB Conc 32.1 g/dl (32-36); Mean Corpuscular Hemoglobin 30.5 pg (26-34); Mean Corpuscular Volume 94.9 fl (80-100); Mean Platelet Volume 9.7 fl (7.4-10.4); Monocytes Absolute Auto 0.6 K/mm3 (0.1-0.6); Monocytes Percent Auto 8.6 % (2.6-8.5); Neutrophils Absolute Auto 4.5 K/mm3 (1.3-6.7); Neutrophils Percent Auto 63.1 % (45.5-73.1); Platelet Count Result 293 k/mm3 (150-375); Red Blood Count 4.33 M/mm3 (4.2-5.4); Red Cell Distribution Width 12.6 % (11.5-14.5); White Blood Count 7.1 K/mm3 (4.5-10.0)
[2022-05-20 15:45] LABS: Alanine Aminotransferase 24 U/L (6-35); Albumin Level 4.1 g/dL (3.5-5.1); Alkaline Phosphatase 53 U/L (38-126); Anion Gap 4 mmol/L (8-16); Aspartate Amino Transferase 25 U/L (14-36); Bilirubin,Total 0.3 mg/dL (0.2-1.3); Blood Urea Nitrogen 19 mg/dL (7-17); Calcium 9.3 mg/dL (8.4-10.2); Carbon Dioxide 29 mmol/L (22-30); Chloride 106 mmol/L (98-107); Estimated Glomerular Filt Rate > 60; Glucose 99 mg/dL (65-110); Potassium 4.8 mmol/L (3.4-5.0); Sodium 139 mmol/L (137-145)
[2022-05-23 12:57] LABS: CA 15-3 16 U/mL (<32)
== END 2022-05-20 09:56 | disposition home or self-care (01) ==
LOC: ANHLAB 09:57
PROVIDERS: PCP Family Medicine; Visit Provider Internal Medicine Hematology & Oncology
DX: C50.212 Malignant neoplasm of upper-inner quadrant of left female breast (principal); Z17.0 Estrogen receptor positive status [ER+]
CPT/HCPCS: 36415; 80053; 85025; 86300

== ENCOUNTER → 2023-02-17 13:24 | Outpatient (CLI) | payer BC, SELFPAY ==
--- NOTE | ~2023-02-17 | MM_ITS ---
EXAMINATION: MM screening ivana BI w connie HISTORY: Screening mammogram, history of left breast cancer TECHNIQUE: Craniocaudal and mediolateral oblique 3-D tomosynthesis images were obtained and synthetic 2-D images were generated. CAD analysis was submitted and interpreted. COMPARISON: 02/13/2021, 05/05/2020, 12/19/2019 BREAST PARENCHYMAL COMPOSITION: The breasts are heterogeneously dense, which may obscure small masses . FINDINGS: No suspicious mass, calcification, or architectural distortion are identified in either archana ast to suggest malignancy. There has been no suspicious interval change. IMPRESSION: 1. No mammographic evidence of malignancy. 2. Recommend routine screening mammography in one year. BI-RADS Category 1: Negative Reviewed, dictated and finalized at location A.
== END ==
PROVIDERS: PCP Family Medicine; Visit Provider Internal Medicine Hematology & Oncology
DX: Z12.31 Encounter for screening mammogram for malignant neoplasm of breast (principal)
CPT/HCPCS: 77063; 77067

== ENCOUNTER 2023-08-22 13:56 | Outpatient (CLI) | payer BC, SELFPAY ==
[2023-08-22 14:12] LABS: Basophils Percent Auto 0.4 % (0.2-1.2); Eosinophils Absolute Auto 0.1 K/mm3 (0-0.3); Eosinophils Percent Auto 1.2 % (0-4.4); Hematocrit 40.4 % (37.0-47.0); Hemoglobin 13.1 g/dL (12.0-15.0); Immature Granulocyte Absolute 0.02 K/mm3 (0.00-0.031); Immature Granulocyte Percent A 0.2 % (0-0.5); Lymphocytes Absolute Auto 2.14 K/mm3 (0.9-3.2); Lymphocytes Percent Auto 25.3 % (18.3-44.2); Mean Corpuscular HGB Conc 32.4 g/dl (32-36); Mean Corpuscular Hemoglobin 30.9 pg (26-34); Mean Corpuscular Volume 95.3 fl (80-100); Mean Platelet Volume 9.5 fl (7.4-10.4); Monocytes Absolute Auto 0.6 K/mm3 (0.1-0.6); Monocytes Percent Auto 6.5 % (2.6-8.5); Neutrophils Absolute Auto 5.6 K/mm3 (1.3-6.7); Neutrophils Percent Auto 66.4 % (45.5-73.1); Platelet Count Result 304 k/mm3 (150-375); Red Blood Count 4.24 M/mm3 (4.2-5.4); White Blood Count 8.5 K/mm3 (4.5-10.0)
[2023-08-22 16:43] LABS: Alanine Aminotransferase 23 U/L (6-35); Alkaline Phosphatase 51 U/L (38-126); Anion Gap 3 mmol/L (8-16); Aspartate Amino Transferase 27 U/L (14-36); Bilirubin,Total 0.4 mg/dL (0.2-1.3); Blood Urea Nitrogen 21 mg/dL (7-17); Calcium 9.3 mg/dL (8.4-10.2); Carbon Dioxide 31 mmol/L (22-30); Chloride 103 mmol/L (98-107); Estimated Glomerular Filt Rate > 60; Glucose 95 mg/dL (65-110); Potassium 4.2 mmol/L (3.4-5.0); Sodium 137 mmol/L (137-145)
[2023-08-24 21:36] LABS: CA 15-3 14 U/mL (<32)
== END 2023-08-22 13:57 | disposition home or self-care (01) ==
PROVIDERS: PCP Family Medicine; Visit Provider Internal Medicine Hematology & Oncology
DX: C50.212 Malignant neoplasm of upper-inner quadrant of left female breast (principal); Z17.0 Estrogen receptor positive status [ER+]
CPT/HCPCS: 36415; 80053; 85025; 86300

== ENCOUNTER 2023-09-07 10:28 | Outpatient (CLI) | payer BC, SELFPAY ==
[2023-09-07 10:42] LABS: Basophils Percent Auto 0.5 % (0.2-1.2); Eosinophils Absolute Auto 0.1 K/mm3 (0-0.3); Eosinophils Percent Auto 1.5 % (0-4.4); Hematocrit 40.6 % (37.0-47.0); Hemoglobin 12.9 g/dL (12.0-15.0); Immature Granulocyte Absolute 0.01 K/mm3 (0.00-0.031); Immature Granulocyte Percent A 0.2 % (0-0.5); Lymphocytes Absolute Auto 2.03 K/mm3 (0.9-3.2); Lymphocytes Percent Auto 31.1 % (18.3-44.2); Mean Corpuscular HGB Conc 31.8 g/dl (32-36); Mean Corpuscular Hemoglobin 30.1 pg (26-34); Mean Corpuscular Volume 94.6 fl (80-100); Mean Platelet Volume 9.4 fl (7.4-10.4); Monocytes Absolute Auto 0.6 K/mm3 (0.1-0.6); Monocytes Percent Auto 8.4 % (2.6-8.5); Neutrophils Absolute Auto 3.8 K/mm3 (1.3-6.7); Neutrophils Percent Auto 58.3 % (45.5-73.1); Platelet Count Result 295 k/mm3 (150-375); Red Blood Count 4.29 M/mm3 (4.2-5.4); White Blood Count 6.5 K/mm3 (4.5-10.0)
[2023-09-07 16:56] LABS: Alanine Aminotransferase 23 U/L (6-35); Albumin Level 3.9 g/dL (3.5-5.1); Alkaline Phosphatase 47 U/L (38-126); Anion Gap 4 mmol/L (8-16); Aspartate Amino Transferase 23 U/L (14-36); Bilirubin,Total 0.4 mg/dL (0.2-1.3); Blood Urea Nitrogen 17 mg/dL (7-17); Calcium 9.2 mg/dL (8.4-10.2); Carbon Dioxide 30 mmol/L (22-30); Chloride 104 mmol/L (98-107); Estimated Glomerular Filt Rate > 60; Glucose 95 mg/dL (65-110); Potassium 4.3 mmol/L (3.4-5.0); Sodium 138 mmol/L (137-145)
[2023-09-12 08:48] LABS: CA 15-3 16 U/mL (<32); FSH 39.1 mIU/mL (***)
[2023-09-15 19:58] LABS: Estradiol, Ultrasensitive 30 pg/mL
== END 2023-09-07 10:29 | disposition home or self-care (01) ==
LOC: ANHLAB 10:30
PROVIDERS: PCP Family Medicine; Visit Provider Internal Medicine Hematology & Oncology
DX: C50.212 Malignant neoplasm of upper-inner quadrant of left female breast (principal); Z17.0 Estrogen receptor positive status [ER+]
CPT/HCPCS: 36415; 80053; 82670; 83001; 85025; 86300

== ENCOUNTER 2023-12-26 03:10 | Day surgery (SDC) | payer BC, SELFPAY ==
[2023-12-13 09:39] VITALS: BMI 25.0
--- NOTE | 2023-12-23 12:38 | SUR.PREOP ---
Patient called regarding upcoming procedure. Reviewed preop instructions, appointment times, and procedure prep.
--- NOTE | 2023-12-23 17:23 | PM.HPGS ---
History of Present Illness History of Present Illness Consent: Risks, benefits, and alternatives have been discussed and questions answered. Patient agrees to proceed with procedure. Chief complaint: neoplasm screening Narrative: Megha Carvajal is a 58 year old female referred for colon cancer screening. Her last colonoscopy was about 7 years ago. Review of Systems Review of Systems: All systems reviewed & are unremarkable except as noted in HPI and below PMFSH Past Medical History Medical History Anxiety Breast cancer left Depression with anxiety Dyslipidemia Encounter for cosmetic procedure Essential (primary) hypertension History of cervical cancer Prediabetes Surgical History Surgical History History of facelift (~02/2022) Bilateral temporal brow lift, Bilateral upper eyelid blepharoplasty, Facial rhytidectomy and cervicoplasty, Bilateral otoplasty History of hysterectomy (~2008) 2008 History of lumpectomy of left breast (~2018) 2018 History of strabismus surgery (~2009) 2009 - / Family History Family History Other Family history of chronic obstructive pulmonary disease Family history of coronary artery disease Social History Social History Smoking status: Never smoker Alcohol intake: current Alcohol use details: occasional wine Substance use: never Substance use type: does not use Lack of Transportation: No Lack of Food: Never True Current Housing: I Have Housing Concerned About Future Housing: No Difficulty Paying Gas/Electric Bills: No Difficulty Paying for Meds: No Currently Unemployed: No Education: Associate Degree Difficulty w/ Childcare or Family Care: No Living arrangements: alone Occupation/Education: occupation Gender identity (if verbalized by the patient): Female Spiritual care concerns: No Meds Home Medications and Allergies Home Medications Medication Instructions Recorded Confirmed Type coenzyme Q10 30 mg capsule (CoQ-10) 30 mg PO DAILY 03/15/22 12/13/23 History magnesium 250 mg tablet 250 mg PO DAILY 03/15/22 12/13/23 History turmeric 100 mg-sanket 150 2 cap PO DAILY 03/15/22 12/13/23 History mg-olive 50 mg-oreg 150 mg-capryl capsule lisinopril 10 mg tablet 10 mg PO DAILY #90 tabs 08/31/23 12/13/23 Rx sertraline 25 mg tablet 25 mg PO DAILY #90 tabs 11/24/23 12/13/23 Rx anastrozole 1 mg tablet 1 mg PO DAILY 12/13/23 12/13/23 History multivitamin with minerals 1 tablet PO DAILY 12/13/23 12/13/23 History Allergies Allergy/AdvReac Type Severity Reaction Status Date / Time No Known Drug Allergies Allergy Unknown Unknown Verified 12/26/23 12:10 Exam Resp: Auscultation: clear to auscultation bilaterally Cardio: Rate: regular rate Rhythm: regular rhythm GI: GI Palp: Yes Soft to palpation and No Tenderness to palpation present (GI) Assessment and Plan Assessment and plan (1) Colon cancer screening: Code(s): Z12.11 - Encounter for screening for malignant neoplasm of colon Status: Acute Assessment and Plan: Colonoscopy with possible biopsy or polypectomy or cautery or injection of substances.
[2023-12-26 12:11] VITALS: BP 129/80; PULSE 72; RESP 18; TEMP 36.6; O2SAT 100
--- NOTE | 2023-12-26 12:13 | SUR.PREOP ---
1205: DR RUIZ IN ROOM SEEING PT, MADE AWARE PT HAD BREAKFAST YESTERDAY AT 0900 AND TOOK MAGNESIUM CITRATE AT 0430 THIS AM, NO NEW ORDERS RECEIVED.
--- NOTE | 2023-12-26 12:45 | WPDANESEPPF ---
Anes - Initial Pre Proc Eval Procedure: Operation Date: 12/26/23 13:30 Proposed Procedures p Screening Colonoscopy - Lew Dumont MD Date/Time: 12/26/23 12:45 Surgeon: Lew Dumont MD Pre Op Diagnosis: neoplasm screening Patient Data Age: 58 Gender: F Height: 1.63 m Weight: 62.7 kg Last Vital Signs Temp 36.6 C 12/26/23 12:11 Pulse 72 12/26/23 12:11 Resp 18 12/26/23 12:11 BP 129/80 12/26/23 12:11 Pulse Ox 100 12/26/23 12:11 O2 Del Method Room Air 12/26/23 12:11 Allergies Allergy/AdvReac Type Severity Reaction Status Date / Time No Known Drug Allergies Allergy Unknown Unknown Verified 12/26/23 12:10 Home Medications Medication Instructions Recorded Confirmed Type coenzyme Q10 30 mg capsule (CoQ-10) 30 mg PO DAILY 03/15/22 12/13/23 History magnesium 250 mg tablet 250 mg PO DAILY 03/15/22 12/13/23 History turmeric 100 mg-sanket 150 2 cap PO DAILY 03/15/22 12/13/23 History mg-olive 50 mg-oreg 150 mg-capryl capsule lisinopril 10 mg tablet 10 mg PO DAILY #90 tabs 08/31/23 12/13/23 Rx sertraline 25 mg tablet 25 mg PO DAILY #90 tabs 11/24/23 12/13/23 Rx anastrozole 1 mg tablet 1 mg PO DAILY 12/13/23 12/13/23 History multivitamin with minerals 1 tablet PO DAILY 12/13/23 12/13/23 History Patient hx anesthesia problems: none Family hx anesthesia problems: none Results Review: All pre-operative results and documents have been reviewed as part of the pre-operative evaluation. [facility] Past Medical History Medical History Anxiety Breast cancer left Depression with anxiety Dyslipidemia Encounter for cosmetic procedure Essential (primary) hypertension History of cervical cancer Prediabetes Surgical History Surgical History History of facelift (~02/2022) Bilateral temporal brow lift, Bilateral upper eyelid blepharoplasty, Facial rhytidectomy and cervicoplasty, Bilateral otoplasty History of hysterectomy (~2008) 2008 History of lumpectomy of left breast (~2018) 2019 History of strabismus surgery (~2009) 2009 - b/l Family History Family History Other Family history of chronic obstructive pulmonary disease Family history of coronary artery disease Social History Social History Smoking status: Never smoker Alcohol intake: current Alcohol use details: occasional wine Substance use: never Substance use type: does not use Lack of Transportation: No Lack of Food: Never True Current Housing: I Have Housing Concerned About Future Housing: No Difficulty Paying Gas/Electric Bills: No Difficulty Paying for Meds: No Currently Unemployed: No Education: Associate Degree Difficulty w/ Childcare or Family Care: No Living arrangements: alone Occupation/Education: occupation Gender identity (if verbalized by the patient): Female Spiritual care concerns: No Anes - Eval Final PreProcedure Day of Procedure 12/26/23 12:45 Patient weight: normal Heart: regular rate and rhythm Lungs: clear to auscultation Airway: Mallampati scale class II Neurological: alert and oriented Last oral intake: >/= 8 hours ASA classification: III Emergent: no Anesthetic plan: proceed Anesthesia type and monitoring: general GIVS and standard monitoring Results Review: All pre-operative results and documents have been reviewed as part of the pre-operative evaluation. Informed Consent: The patient's anesthetic plan and its attendant risks and benefits were discussed with the patient/family/POA. Questions were solicited and answers provided to the satisfaction of the patient/family/POA.
[2023-12-26] MEDS: LACTATED RINGERS 1,000 ML 150 ML IV CONT (13:00)
[2023-12-26 13:28] VITALS: BP 112/51; PULSE 80; RESP 19; O2SAT 100
[2023-12-26 13:38] VITALS: BP 123/81; PULSE 72; RESP 16; O2SAT 100
[2023-12-26 13:48] VITALS: BP 139/71; PULSE 65; RESP 15; O2SAT 100
== END 2023-12-26 13:58 | disposition home or self-care (01) ==
PROVIDERS: PCP Family Medicine; Visit Provider Internal Medicine Gastroenterology
PROC: 0DJD8ZZ Inspection of Lower Intestinal Tract, Via Natural or Artificial Opening Endoscopic (ICD-10-PCS; CPT 45378; principal; 2023-12-26 13:30)
DX: Z12.11 Encounter for screening for malignant neoplasm of colon (principal); K64.8 Other hemorrhoids; I10 Essential (primary) hypertension; E78.5 Hyperlipidemia, unspecified; F41.8 Other specified anxiety disorders; Z79.811 Long term (current) use of aromatase inhibitors; Z98.890 Other specified postprocedural states; Z85.3 Personal history of malignant neoplasm of breast; Z85.41 Personal history of malignant neoplasm of cervix uteri; Z82.49 Family history of ischemic heart disease and other diseases of the circulatory system
CPT/HCPCS: 45378; J2704; J7120

== ENCOUNTER 2024-02-20 10:03 | Outpatient (CLI) | payer BC, SELFPAY ==
--- NOTE | ~2024-02-20 | US_ITS ---
EXAMINATION: US thyroid DATE: 02/20/2024 10:47 INDICATION: Nontoxic goiter, unspecified. TECHNIQUE: Multiple ultrasound images of the thyroid were obtained. COMPARISON: None. FINDINGS: The right thyroid lobe measures 4.6 x 1.2 x 1.5 cm. The left thyroid lobe measures 4.5 x 1.2 x 1.5 c m. There is normal echotexture and echogenicity throughout the thyroid gland. No discrete nodules id entified. Normal vascular flow is present. IMPRESSION: 1. Normal thyroid. Reviewed, dictated and finalized at location E. IMPRESSION: 1. Normal thyroid.
== END 2024-02-20 10:04 ==
LOC: MICIMG 10:06
PROVIDERS: PCP Family Medicine; Visit Provider Family Medicine
DX: E04.9 Nontoxic goiter, unspecified (principal)
CPT/HCPCS: 76536

== ENCOUNTER 2024-02-20 10:08 | Outpatient (CLI) | payer BC, SELFPAY ==
--- NOTE | ~2024-02-20 | MM_ITS ---
EXAMINATION: MM screening ivana BI w connie HISTORY: Screening mammogram TECHNIQUE: Craniocaudal and mediolateral oblique 3-D tomosynthesis images were obtained and synthetic 2-D images were generated. CAD analysis was submitted and interpreted. COMPARISON: February 17, 2023, February 13, 2021 bilateral screening mammogram examinations BREAST PARENCHYMAL COMPOSITION: The breasts are heterogeneously dense, which may obscure small masses . FINDINGS: There is no evidence of suspicious mass, calcification, or architectural distortion to sugg est malignancy in either breast. There has been no suspicious interval change. IMPRESSION: 1. No mammographic evidence of malignancy. 2. Recommend routine screening mammography in one year. BI-RADS Category 1: Negative Reviewed, dictated and finalized at location A.
== END 2024-02-20 10:09 ==
PROVIDERS: PCP Internal Medicine Hematology & Oncology; Visit Provider Internal Medicine Hematology & Oncology
DX: Z12.31 Encounter for screening mammogram for malignant neoplasm of breast (principal)
CPT/HCPCS: 77063; 77067

== ENCOUNTER 2024-03-06 07:51 | Outpatient (CLI) | payer BC, SELFPAY ==
--- NOTE | ~2024-03-06 | DEXA_ITS ---
Bone Density Report Name: YESSY SHARIF Age: 58 Sex: Female Ethnicity: White Date of : 1965 Indication: postmenopausal; screening for osteoporosis; cancer; hysterectomy; Referring Provider: ELINA KAMARA Study: Bone densitometry was performed. Exam Date: March 06, 2024 Accession number: [id number] Bone Density: Region BMD T-score Z-score Classification AP Spine(L1-L4) 0.914 -1.2 0.1 Osteopenia Femoral Neck (Left) 0.782 -0.6 0.6 Normal Total Hip (Left) 0.991 0.4 1.2 Normal Femoral Neck (Right) 0.805 -0.4 0.8 Normal Total Hip (Right) 1.052 0.9 1.7 Normal Total Hip Mean 1.021 0.7 1.5 Normal World Health Organization criteria for BMD impression classify patients as: Normal (T-score at or above -1.0), Osteopenia (T-score between -1.0 and -2.5), or Osteoporosis (T-score at or below -2.5). 10-year Fracture Risk(1): Major Osteoporotic Fracture 6.1% Hip Fracture 0.2% Reported Risk Factors: [place] (), Neck BMD=0.782, BMI=23.8 (1) FRAX(R) Version 3.08. Fracture probability calculated for an untreated patient. Fracture probability may be lower if the patient has received treatment. Clinical Information Provided by Patient: Has used the following medications: Vitamin D Has the following medical conditions: Cancer, Hysterectomy Patient maximum height was 64.5 Onset of menses at age 12 Number of children 2 Missed period for more than 6 months in a row Impression: The patient has low bone mass, based on the Total Spine T-score. The patient has an estimated ten-year risk of hip fracture of 0.2% and an estimated ten-year risk of major fracture of 6.1%, based on the WHO FRAX algorithm. Discussion: BONE DENSITY IS LOW AT ONE OR MORE SKELETAL SITES. This patient's lowest T-score is low at one or more skeletal sites. It meets the World Health Organization's (WHO) criteria for ?low bone mass? (T-score between -1.0 and -2.5). The patient's 10-year risk of fracture as calculated by FRAX is less than the threshold where pharmacological therapy is recommended by the National Osteoporosis Foundation (NOF). However, all treatment decisions require clinical judgment and consideration of individual patient factors, including patient preferences, comorbidities, previous drug use, risk factors not captured in the FRAX model (e.g., frailty, falls, vitamin D deficiency, increased bone turnover, interval significant decline in bone density) and possible under or overestimation of fracture risk by FRAX. The patient should follow a healthful lifestyle (good nutrition with adequate calcium and vitamin D, and appropriate weight-bearing exercise). Follow-Up: Consider repeating this study in 2 to 3 years to reassess this patient's status, or sooner if there is some new clinical indication.
== END 2024-03-06 07:52 | disposition home or self-care (01) ==
PROVIDERS: PCP Internal Medicine Hematology & Oncology; Visit Provider Internal Medicine Hematology & Oncology
DX: M85.89 Other specified disorders of bone density and structure, multiple sites (principal)
CPT/HCPCS: 77080

== ENCOUNTER 2024-09-24 11:49 | Outpatient (CLI) | payer BC, SELFPAY ==
[2024-09-24 12:08] LABS: Basophils Percent Auto 0.4 % (0.2-1.2); Eosinophils Absolute Auto 0.1 K/mm3 (0-0.3); Eosinophils Percent Auto 1.8 % (0-4.4); Hematocrit 41.9 % (37.0-47.0); Hemoglobin 13.7 g/dL (12.0-15.0); Immature Granulocyte Absolute 0.02 K/mm3 (0.00-0.031); Immature Granulocyte Percent A 0.4 % (0-0.5); Lymphocytes Absolute Auto 1.84 K/mm3 (0.9-3.2); Lymphocytes Percent Auto 33.8 % (18.3-44.2); Mean Corpuscular HGB Conc 32.7 g/dl (32-36); Mean Corpuscular Hemoglobin 30.7 pg (26-34); Mean Corpuscular Volume 93.9 fl (80-100); Mean Platelet Volume 9.3 fl (7.4-10.4); Monocytes Absolute Auto 0.5 K/mm3 (0.1-0.6); Monocytes Percent Auto 9.9 % (2.6-8.5); Neutrophils Absolute Auto 2.9 K/mm3 (1.3-6.7); Neutrophils Percent Auto 53.7 % (45.5-73.1); Platelet Count Result 306 k/mm3 (150-375); Red Blood Count 4.46 M/mm3 (4.2-5.4); Red Cell Distribution Width 13.1 % (11.5-14.5); White Blood Count 5.4 K/mm3 (4.5-10.0)
[2024-09-24 12:59] LABS: Alanine Aminotransferase 17 U/L (6-35); Alkaline Phosphatase 62 U/L (38-126); Anion Gap 5 mmol/L (4-12); Aspartate Amino Transferase 24 U/L (14-36); Bilirubin,Total 0.6 mg/dL (0.2-1.3); Blood Urea Nitrogen 20 mg/dL (7-17); Calcium 8.9 mg/dL (8.4-10.2); Carbon Dioxide 29 mmol/L (22-30); Chloride 103 mmol/L (98-107); Estimated Glomerular Filt Rate > 60; Glucose 90 mg/dL (65-110); Potassium 4.7 mmol/L (3.4-5.0); Sodium 137 mmol/L (137-145)
[2024-09-26 05:03] LABS: CA 15-3 11 U/mL (<32)
== END 2024-09-24 11:50 | disposition home or self-care (01) ==
PROVIDERS: PCP Family Medicine; Visit Provider Internal Medicine Hematology & Oncology
DX: C50.212 Malignant neoplasm of upper-inner quadrant of left female breast (principal); Z17.0 Estrogen receptor positive status [ER+]
CPT/HCPCS: 36415; 80053; 85025; 86300

== ENCOUNTER 2025-02-21 13:08 | Outpatient (CLI) | payer BC, SELFPAY ==
--- NOTE | ~2025-02-21 | MM_ITS ---
EXAMINATION: MM screening ivana BI w connie HISTORY: Screening TECHNIQUE: Craniocaudal and mediolateral oblique 3-D tomosynthesis images were obtained and synthetic 2-D images were generated. CAD analysis was submitted and interpreted. COMPARISON: Comparison to multiple prior studies sequentially, with oldest reviewed study dated 12/19. BREAST PARENCHYMAL COMPOSITION: There are scattered areas of fibroglandular density. FINDINGS: There is no evidence of suspicious mass, calcification, or architectural distortion to sugg est malignancy in either breast. There has been no suspicious interval change. IMPRESSION: 1. No mammographic evidence of malignancy. 2. Recommend routine screening mammography in one year. BI-RADS Category 1: Negative Reviewed, dictated and finalized at location A.
== END 2025-02-21 13:09 | disposition home or self-care (01) ==
LOC: MICIMG 13:10
PROVIDERS: PCP Obstetrics & Gynecology; Visit Provider Internal Medicine Hematology & Oncology
DX: Z12.31 Encounter for screening mammogram for malignant neoplasm of breast (principal)
CPT/HCPCS: 77063; 77067